=== PATIENT | female | born 1980 | race Two or more races ===

== ENCOUNTER 2016-11-14 05:29 | Inpatient (IN) | payer SELFPAY ==
[~2016-11-14] VITALS: Ht 149.9 cm; Wt 76.2 kg
[2016-11-14] MEDS ORDERED: FENTANYL PF 100 MCG/2 ML VIAL. ONE (07:14)
[2016-11-14] MEDS ORDERED: KETOROLAC TROMETHAMINE 30 MG/ML SYRINGE. IV PRN (07:15)
[2016-11-14] MEDS ORDERED: MORPHINE PF 5 MG/10 ML VIAL. ONE (07:15)
[2016-11-14] MEDS ORDERED: OXYTOCIN 10 UNIT/ML VIAL. ONE ×2 (07:18→08:50)
[2016-11-14] MEDS ORDERED: CEFAZOLIN PREMIX 2 GM/50 ML BAG. IV ONE (08:00)
[2016-11-14 08:01] LABS: HEMATOCRIT 36.2 % (36.0-47.0); HEMOGLOBIN 11.9 g/dL (12.0-15.5); RED BLOOD COUNT 3.93 x10^6/uL (3.50-5.40); RED CELL DISTRIBUTION WIDTH 13.3 % (11.5-14.5); WHITE BLOOD COUNT 10.2 x10^3/uL (4.0-11.0)
[2016-11-14] MEDS ORDERED: MMR per PROTOCOL. MC PRN (08:15)
[2016-11-14] MEDS ORDERED: OXYCODONE/APAP 5/325 TABLET. PO PRN (08:15)
[2016-11-14] MEDS ORDERED: MAGNESIUM HYDROXIDE 2,400 MG/30 ML ORAL.SUSP. PO PRN (08:15)
[2016-11-14] MEDS ORDERED: ONDANSETRON PF 4 MG/2 ML VIAL. IV PRN (08:15)
[2016-11-14] MEDS ORDERED: DOCUSATE SODIUM 100 MG CAPSULE PO PRN (08:15)
[2016-11-14] MEDS ORDERED: DIPHENHYDRAMINE ORAL ELIXIR 12.5 MG/5 ML. PO PRN (08:15)
[2016-11-14] MEDS ORDERED: SIMETHICONE 80 MG TAB.CHEW PO PRN (08:15)
[2016-11-14] MEDS ORDERED: 0.9 % SODIUM CHLORIDE 10 ML DISP.SYRIN. IV PRN (08:15)
[2016-11-14] MEDS ORDERED: MAG HYDROX/ALUMINUM HYD/SIMETH 30 ML ORAL.SUSP PO PRN (08:15)
[2016-11-14] MEDS ORDERED: ZOLPIDEM 5 MG TABLET. PO PRN (08:15)
[2016-11-14] MEDS ORDERED: OXYTOCIN 30 UNIT/500 ML PREMIX 500 ML IV PRN (08:15)
--- NOTE | 2016-11-14 12:13 | OP ---
DATE OF SURGERY: 11/14/2016 PREOPERATIVE DIAGNOSIS: Term intrauterine , desires repeat . POSTOPERATIVE DIAGNOSIS: Term intrauterine , desires repeat . PROCEDURE: Repeat low transverse . SURGEON: Alverto Thorne M.D. HISTORIOGRAPHER: None. ANESTHESIA: Regional. ESTIMATED BLOOD LOSS: 600 mL. FINDINGS: Male , Apgars 8, 9 and 9, weight 7 pounds. Normal uterus, tubes and ovaries. SPECIMENS: None. COMPLICATIONS: None. CONDITION: Stable. DESCRIPTION OF PROCEDURE: Risks, benefits, indications, alternatives discussed in detail with the patient. The patient brought to the OR theater, placed in supine position with left lateral uterine displacement. After adequate regional anesthesia, the patient was prepped and draped in usual sterile manner. Previous Pfannenstiel incision was taken out in toto. Subcutaneous tissue was taken down with Bovie cautery. Rectus fascia was nicked in midline and extended laterally in each direction with Bovie cautery. Upper edge of rectus fascia was grasped x 2, both bluntly and sharply with Bovie cautery. Same procedure was carried out on lower edge of rectus fascia. Rectus muscle split in midline and extended superiorly and inferiorly with Bovie cautery with care not injuring any underlying structures. Sammy retractor was placed, sponges were placed in the gutters, low transverse hysterotomy incision was made sharply with a scalpel and extended laterally in each direction with gloved hand, membranes ruptured with Allis clamp. Clear fluid was noted. Gloved hand was placed in the lower uterine segment, and used to elevate the head with fundal pressure from the assistant principal, was delivered on anterior abdominal wall. cried spontaneously and moved all extremities. Cord was doubly clamped, transected cord between two clamps. The was handed off to nursing care in attendance. Cord blood sample was taken. Placenta was delivered spontaneously intact, 3-vessel cord. Uterus was wiped free of any adherent membranes. Low transverse hysterotomy incision was reapproximated with 0 Monocryl in a running locking manner, imbricated with 0 Monocryl in vertical mattress stitch fashion, any areas of bleeding were controlled with Bovie cautery. Sponges were removed. Sammy retractor was removed. Gutters and lower uterine segment was irrigated copiously with warm normal saline, gutters were inspected and noted to be free of any blood or tissue. Rectus fascia was reapproximated with 0 PDS in a running manner. Subcutaneous tissue was irrigated copiously with warm normal saline. Greta's fascia reapproximated with 2-0 plain in a running manner. Skin was reapproximated with Insorb angie. Sponge, needle and instrument counts were correct x 2. The patient went to postop anesthesia recovery in stable condition. ALVERTO THORNE MD DR: TANVI/mel JOB#: [id number] / [id number]
[2016-11-14 12:59] VITALS: BP 94/50
[2016-11-14] MEDS: IV RINGERS,LACTATED 1000ML 1,000 ML IV SCH (15:38)
[2016-11-14] MEDS: CEFAZOLIN SODIUM 1 GM in IV NORMAL SALINE 50ML 50 ML IV SCH ×2 (16:00→22:52)
[2016-11-14] MEDS ORDERED: FERROUS SULFATE 325 MG TABLET PO SCH (17:00)
[2016-11-14 17:47] VITALS: BP 108/62
[2016-11-14] MEDS: IBUPROFEN 800 MG TABLET. PO SCH (22:49)
[2016-11-14 23:00] VITALS: BP 88/66
[2016-11-15] MEDS: IV RINGERS,LACTATED 1000ML 1,000 ML IV SCH (01:00)
[2016-11-15 04:22] LABS: BASO % 0 % (0-3); EOS % 1 % (0-3); HEMATOCRIT 31.3 % (36.0-47.0); HEMOGLOBIN 10.6 g/dL (12.0-15.5); LYMPH # 1.9 x10^3/uL (1.0-4.8); LYMPH % 20 % (24-48); MEAN CORPUSCULAR HEMOGLOBIN 31 pg (25-35); MEAN CORPUSCULAR HGB CONC 34 g/dL (31-37); MEAN CORPUSCULAR VOLUME 91 fL (79-100); MONO % 7 % (0-9); NEUT % 72 % (31-73); PLATELET COUNT 196 x10^3/uL (140-400); RED BLOOD COUNT 3.44 x10^6/uL (3.50-5.40); RED CELL DISTRIBUTION WIDTH 13.3 % (11.5-14.5); WHITE BLOOD COUNT 9.6 x10^3/uL (4.0-11.0)
[2016-11-15] MEDS: CEFAZOLIN SODIUM 1 GM in IV NORMAL SALINE 50ML 50 ML IV SCH (05:35)
[2016-11-15] MEDS ORDERED: CEFAZOLIN 2GM PREMIX 50 ML IV ONE (06:00)
[2016-11-15 06:05] VITALS: BP 93/54
[2016-11-15] MEDS: OXYCODONE/APAP 5/325 TABLET. PO PRN ×2 (07:47→21:48)
[2016-11-15 10:00] VITALS: BP 103/57
[2016-11-15 14:50] VITALS: BP 122/67
[2016-11-15] MEDS: IBUPROFEN 800 MG TABLET. PO SCH (14:57)
[2016-11-15 15:55] VITALS: BP 99/57
--- NOTE | 2016-11-15 18:36 | PDOC ---
Provider Note Provider Note Doing well VSS Incision CDI FU in AM SUZY DESHPANDE MD Nov 15, 2016 18:36
[2016-11-15 20:25] VITALS: BP 104/70
--- NOTE | 2016-11-15 22:42 | RAD ---
PROCEDURE Right lower extremity venous duplex ultrasound. HISTORY Right calf pain. One day . TECHNIQUE Grayscale, color flow, and spectral waveform analysis was performed. COMPARISON None. FINDINGS All visualized vein segments are compressible with normal phasicity of waveform and augmentation. Superficial femoral vein is duplicated. No thrombus on grayscale or color imaging is apparent. IMPRESSION Exam is negative for deep vein thrombosis in the right lower extremity. Electronically signed by: Jace Sanches MD (Nov 15, 2016 22:40:17)
[2016-11-16 01:00] VITALS: BP 93/50
[2016-11-16] MEDS: IBUPROFEN 800 MG TABLET. PO SCH ×2 (05:13→13:09)
[2016-11-16 05:15] VITALS: BP 103/61
--- NOTE | 2016-11-16 12:51 | PDOC ---
OB Progress Note Date of Service 11/16/16 Time of Evaluation 1250 Problem List Problems Medical Problems: (1) Status: Acute Notes PT. feeling well. Pain controlled. Breast feeding. No complaints. Lab Laboratory Tests Test 11/15/16 03:55 White Blood Count 9.6x10^3/uL (4.0-11.0) Red Blood Count 3.44x10^6/uL (3.50-5.40) Hemoglobin 10.6g/dL (12.0-15.5) Hematocrit 31.3% (36.0-47.0) Mean Corpuscular Volume 91fL (79-100) Mean Corpuscular Hemoglobin 31pg (25-35) Mean Corpuscular Hemoglobin Concent 34g/dL (31-37) Red Cell Distribution Width 13.3% (11.5-14.5) Platelet Count 196x10^3/uL (140-400) Neutrophils (%) (Auto) 72% (31-73) Lymphocytes (%) (Auto) 20% (24-48) Monocytes (%) (Auto) 7% (0-9) Eosinophils (%) (Auto) 1% (0-3) Basophils (%) (Auto) 0% (0-3) Neutrophils # (Auto) 6.9x10^3uL (1.8-7.7) Lymphocytes # (Auto) 1.9x10^3/uL (1.0-4.8) Monocytes # (Auto) 0.7x10^3/uL (0.0-1.1) Eosinophils # (Auto) 0.0x10^3/uL (0.0-0.7) Basophils # (Auto) 0.0x10^3/uL (0.0-0.2) Medications Current Medications Fentanyl Citrate (Fentanyl 2ml Vial) 100 mcg STK-MED ONCE .ROUTE ; Start at 07:14; Stop 11/14/16 at 07:15; Status DC Ketorolac Tromethamine (Toradol) 30 mg PRN Q6HRS PRN IV PAIN Last administered on 11/14/16t 10:39; Start 11/14/16 at 07:15; Stop 11/15/16 at 07:14; Status DC Morphine Sulfate (Morphine Preservative Free) 5 mg STK-MED ONCE .ROUTE ; Start 11/14/16 at 07:15; Stop 11/14/16 at 07:16; Status DC Oxytocin 10 unit 10 unit STK-MED ONCE .ROUTE ; Start 11/14/16 at 07:18; Stop at 07:19; Status DC Cefazolin Sodium/ Dextrose (Ancef 2gm Premix) 50 ml @ 100 mls/hr 1X ONCE IV ; Start 11/15/16 at 06:00; Stop 11/15/16 at 06:29; Status DC Sodium Chloride 3 ml 3 ml QSHIFT PRN IV AFTER MEDS AND BLOOD DRAWS Last administered on 11/15/16 07:48; Start 11/14/16 at 08:15 Oxytocin/Sodium Chloride (Oxytocin Premix Infusion) 500 ml @ 125 mls/hr CONT PRN IV EXCESSIVE POST- BLEEDING; Start 11/14/16 at 08:15; Stop 11/14/16 at 16:14; Status DC Ibuprofen (Motrin) 800 mg Q8HRS PO Last administered on 11/16/16 05:13; Start 11/14/16 at 22:45 Ondansetron HCl (Zofran) 4 mg PRN Q6HRS PRN IV NAUSEA/VOMITING; Start 11/14/16 at 08:15 Docusate Sodium (Colace) 100 mg PRN BID PRN PO CONSTIPATION Last administered on 11/15/16 07:47; Start 11/14/16 at 08:15 Magnesium Hydroxide (Milk Of Magnesia) 2,400 mg PRN DAILY PRN PO CONSTIPATION; Start 11/14/16 at 08:15 Al Hydroxide/Mg Hydroxide (Mylanta Plus Xs) 30 ml PRN Q4HRS PRN PO HEARTBURN / GAS; Start 11/14/16 at 08:15 Simethicone (Gas-X) 80 mg PRN AFTMEALHC PRN PO GAS / BLOATING Last administered on 11/15/16 20:25; Start 11/14/16 at 08:15 Diphenhydramine HCl (Benadryl Oral Elixir) 12.5 mg PRN Q6HRS PRN PO ITCHING; Start 11/14/16 at 08:15 Ferrous Sulfate (Feosol) 325 mg BIDWMEALS PO ; Start 11/14/16 at 17:00; Stop at 19:32; Status DC Zolpidem Tartrate (Ambien) 5 mg PRN QHS PRN PO INSOMNIA, MAY REPEAT X1; Start 11/14/16 at 08:15 Info (Do NOT chart on this placeholder) 1 ea PRN 1X PRN MC SEE COMMENTS; Start 11/14/16 at 08:15 Info (Do NOT chart on this placeholder) 1 ea PRN 1X PRN MC SEE COMMENTS; Start 11/14/16 at 08:15 Oxycodone/ Acetaminophen (Percocet 5/325) 1 tab PRN Q4HRS PRN PO MILD PAIN; Start 11/14/16 at 08:15 Oxycodone/ Acetaminophen 2 tab 2 tab PRN Q4HRS PRN PO MODERATE PAIN, SEVERE PAIN Last administered on 11/15/16 21:48; Start 11/14/16 at 08:15 Cefazolin Sodium/ Sodium Chloride (Ancef/Iv Sodium Chloride 0.9% 50ml) 50 ml @ 100 mls/hr Q8HRS IV Last administered on 11/15/16 05:35; Start 11/14/16 at 14: 00; Stop 11/15/16 at 12:20; Status DC Oxytocin 10 unit 10 unit STK-MED ONCE .ROUTE ; Start 11/14/16 at 08:50; Stop at 08:51; Status DC Lactated Ringer's (Iv Lactated Ringers) 1,000 ml @ 100 mls/hr Q10H IV Last administered on 11/15/16 01:00; Start 11/14/16 at 15:45 Cefazolin Sodium/ Dextrose (Ancef 2gm Premix) 2 gm STK-MED ONCE IV ; Start 11/14 at 08:00; Stop 11/15/16 at 08:37; Status DC Exam Abd: soft, non tender, fundus firm Incision site: clean, dry and intact Assessment POD#2 s/p c/s Plan of Care: See new orders (D/c home.) MICHELET BECERRIL Jr, MD Nov 16, 2016 12:51
--- NOTE | 2016-11-16 12:52 | DISCH ---
DISCHARGE INSTRUCTIONS Condition on Discharge Condition on Discharge: Stable Activity After Discharge Activity Instructions for Disc: Activity as tolerated Lifting Instructions after Dis: No heavy lifting Driving Instructions after Dis: No driving for 2 weeks Diet after Discharge Diet after Discharge: Regular Contacting the DRLeonel after DC Call your doctor for: Concerns you may have Follow-Up Follow up with: Dr. Thorne in 1 week. MICHELET BECERRIL Jr, MD Nov 16, 2016 12:52
[2016-11-16] MEDS ORDERED: DOCU-27 PO (12:53)
[2016-11-16] MEDS ORDERED: NAPR500T PO (12:53)
[2016-11-16] MEDS ORDERED: OXYC-323 PO (12:53)
[2016-11-16 14:15] VITALS: BP 132/71
== END 2016-11-16 17:19 | disposition home or self-care (01) | DRG 766 ==
LOC: 3 SO LND 05:29 → 3 NORTH 12:52
PROVIDERS: ADMIT Specialist; ATTEND Specialist
PROC: 10D00Z1 Extraction of Products of Conception, Low, Open Approach (ICD-10-PCS; principal; 2016-11-14)
DX: O34.211 Maternal care for low transverse scar from previous cesarean delivery (principal); Z37.0 Single live birth; Z3A.00 Weeks of gestation of pregnancy not specified; O09.523 Supervision of elderly multigravida, third trimester
CPT/HCPCS: 36415; 85027; 86593; 86850; 86900; 86901; 93971; J0690; J1885; J2270; J2590; J3010; J7120